=== PATIENT | male | born 1985 | race Caucasian/White ===

== ENCOUNTER 2019-03-21 14:49 | Inpatient (IN) | payer OTHER ==
[~2019-03-21] VITALS: Ht 170.2 cm; Wt 77.3 kg
[2019-03-21] MEDS ORDERED: LAMO100 PO (15:10)
[2019-03-21] MEDS ORDERED: ONDANSETRON HCL 4 MG/2 ML VIAL IVP PRN ×2 (15:45→16:15)
[2019-03-21] MEDS ORDERED: ACETAMINOPHEN 325 MG TABLET PO PRN (15:45)
[2019-03-21] MEDS ORDERED: 0.9% SODIUM CHLORIDE 10 ML SYRINGE IVP PRN ×2 (15:45→16:15)
[2019-03-21 16:01] LABS: BASOPHILS % (AUTO) 0.3 % (0.0-2.0); EOSINOPHILS % (AUTO) 0.7 % (1.0-6.0); HEMOGLOBIN 15.6 g/dL (13.5-17.5); LYMPHOCYTES # (AUTO) 1.3 K/uL (1.0-4.8); LYMPHOCYTES % (AUTO) 19.7 % (22.0-44.0); MEAN CORPUSCULAR HEMOGLOBIN 31.6 pg (26.0-34.0); MEAN CORPUSCULAR VOLUME 93 fL (80-100); MONOCYTES # (AUTO) 0.4 K/uL (0.1-1.0); MONOCYTES % (AUTO) 6.2 % (2.0-9.0); NEUTROPHILS # (AUTO) 4.8 K/uL (1.8-7.7); NEUTROPHILS % (AUTO) 73.1 % (40.0-70.0); PLATELET COUNT (AUTO) 272 K/uL (150-450); RED BLOOD CELL COUNT(AUTO) 4.94 MIL/uL (4.50-5.90); RED CELL DISTRIBUTION WIDTH 14.5 % (11.5-14.5)
[2019-03-21 16:10] LABS: ANION GAP 11 mmol/L (8-16); CALCIUM, TOTAL 8.7 mg/dL (8.8-10.5); CARBON DIOXIDE 27 mmol/L (22-29); CHLORIDE 106 mmol/L (98-107); CREATININE 0.75 mg/dL (0.60-1.30); GLOMERULAR FILTR. RATE CALC > 60 mL/min (>60); GLUCOSE,RANDOM 158 mg/dL (70-110); POTASSIUM 3.9 mmol/L (3.5-5.1); SODIUM SERUM 144 mmol/L (136-145); UREA NITROGEN, BLOOD 14 mg/dL (7-18)
[2019-03-21 16:15] LABS: ALANINE AMINOTRANSFERASE 28 U/L (12-78); ALBUMIN 3.9 g/dL (3.4-5.0); ALKALINE PHOSPHATASE 52 U/L (46-116); ASPARTATE AMINOTRANSFERASE 21 U/L (15-37); BILIRUBIN,TOTAL 0.5 mg/dL (0.1-1.0)
[2019-03-21] MEDS ORDERED: DOCUSATE SODIUM 100 MG CAPSULE PO PRN (16:15)
[2019-03-21] MEDS ORDERED: IPRATROPIUM BROMIDE 0.5 MG/2.5 ML NEB SOLUTION NEB PRN (16:15)
[2019-03-21] MEDS ORDERED: ALBUTEROL SULFATE 2.5 MG/0.5 ML NEB SOLUTION NEB PRN (16:15)
[2019-03-21] MEDS ORDERED: BISACODYL 10 MG RECTAL RECTAL SUPPOSITORY PR PRN (16:15)
[2019-03-21] MEDS ORDERED: MAGNESIUM HYDROXIDE SUSPENSION 30 ML UDCUP PO PRN (16:15)
[2019-03-21 16:25] VITALS: BP 122/74
[2019-03-21] MEDS ORDERED: INFLUENZA VIRUS VACCINE QVS 2019-20 (3YR+)/PF 60 MCG/0.5 ML SYRINGE IM ONE (17:45)
[2019-03-21] MEDS: MULTIVITAMINS, THERAPEUTIC TABLET PO SCH (17:48)
[2019-03-21] MEDS: PANTOPRAZOLE SODIUM 40 MG DR TABLET PO SCH (17:48)
[2019-03-21] MEDS: FOLIC ACID 1 MG TABLET PO SCH (17:48)
[2019-03-21] MEDS: THIAMINE HCL 100 MG TABLET PO SCH (17:48)
[2019-03-21] MEDS: SODIUM CHLORIDE 0.9% 1,000 ML IV SCH (17:49)
[2019-03-21 20:42] VITALS: BP 123/75
[2019-03-21] MEDS: ChlordiazePOXIDE HCL 25 MG CAPSULE PO PRN (22:35)
[2019-03-22] MEDS: SODIUM CHLORIDE 0.9% 1,000 ML IV SCH ×3 (03:05→20:15)
[2019-03-22 04:01] VITALS: BP 99/65
[2019-03-22 07:33] LABS: BASOPHILS % (AUTO) 0.3 % (0.0-2.0); EOSINOPHILS % (AUTO) 1.8 % (1.0-6.0); HEMATOCRIT 45.1 % (41-53); HEMOGLOBIN 15.3 g/dL (13.5-17.5); LYMPHOCYTES # (AUTO) 1.9 K/uL (1.0-4.8); LYMPHOCYTES % (AUTO) 40.2 % (22.0-44.0); MEAN CORPUSCULAR HEMOGLOBIN 31.4 pg (26.0-34.0); MEAN CORPUSCULAR HGB CONC 33.9 G/dL (31.0-37.0); MEAN CORPUSCULAR VOLUME 93 fL (80-100); MONOCYTES # (AUTO) 0.5 K/uL (0.1-1.0); MONOCYTES % (AUTO) 10.8 % (2.0-9.0); NEUTROPHILS # (AUTO) 2.2 K/uL (1.8-7.7); NEUTROPHILS % (AUTO) 46.9 % (40.0-70.0); PLATELET COUNT (AUTO) 238 K/uL (150-450); RED BLOOD CELL COUNT(AUTO) 4.87 MIL/uL (4.50-5.90); RED CELL DISTRIBUTION WIDTH 14.4 % (11.5-14.5)
[2019-03-22 07:44] LABS: ANION GAP 8 mmol/L (8-16); CALCIUM, TOTAL 8.3 mg/dL (8.8-10.5); CARBON DIOXIDE 25 mmol/L (22-29); CHLORIDE 110 mmol/L (98-107); CREATININE 0.65 mg/dL (0.60-1.30); GLOMERULAR FILTR. RATE CALC > 60 mL/min (>60); GLUCOSE,RANDOM 102 mg/dL (70-110); POTASSIUM 4.2 mmol/L (3.5-5.1); SODIUM SERUM 143 mmol/L (136-145); UREA NITROGEN, BLOOD 8 mg/dL (7-18)
[2019-03-22 08:49] VITALS: BP 106/68
[2019-03-22] MEDS: PANTOPRAZOLE SODIUM 40 MG DR TABLET PO SCH (08:57)
[2019-03-22] MEDS: THIAMINE HCL 100 MG TABLET PO SCH (08:57)
[2019-03-22] MEDS: MULTIVITAMINS, THERAPEUTIC TABLET PO SCH (08:57)
[2019-03-22] MEDS: FOLIC ACID 1 MG TABLET PO SCH (08:58)
[2019-03-22] MEDS: LORazepam 2 MG/ML VIAL IVP PRN ×3 (09:01→20:16)
[2019-03-22] MEDS: LamoTRIgine 100 MG TABLET PO SCH ×2 (09:30→20:16)
[2019-03-22 16:14] VITALS: BP 134/71
[2019-03-22 20:00] VITALS: BP 124/75
[2019-03-22] MEDS: ChlordiazePOXIDE HCL 25 MG CAPSULE PO PRN (20:16)
[2019-03-23 06:14] VITALS: BP 107/68
[2019-03-23] MEDS: SODIUM CHLORIDE 0.9% 1,000 ML IV SCH ×3 (06:48→19:55)
[2019-03-23 07:25] VITALS: BP 130/81
[2019-03-23] MEDS: ChlordiazePOXIDE HCL 25 MG CAPSULE PO PRN ×3 (08:28→22:12)
[2019-03-23] MEDS: LamoTRIgine 100 MG TABLET PO SCH ×2 (08:29→19:53)
[2019-03-23] MEDS: PANTOPRAZOLE SODIUM 40 MG DR TABLET PO SCH (08:29)
[2019-03-23] MEDS: MULTIVITAMINS, THERAPEUTIC TABLET PO SCH (08:29)
[2019-03-23] MEDS: THIAMINE HCL 100 MG TABLET PO SCH (08:30)
[2019-03-23] MEDS: FOLIC ACID 1 MG TABLET PO SCH (08:30)
[2019-03-23] MEDS: LORazepam 2 MG/ML VIAL IVP PRN ×4 (08:40→23:09)
[2019-03-23 16:25] VITALS: BP 108/64
[2019-03-23 20:05] VITALS: BP 129/74
[2019-03-24] MEDS ORDERED: LORazepam 2 MG/ML VIAL IVP PRN (00:30)
[2019-03-24] MEDS: SODIUM CHLORIDE 0.9% 1,000 ML IV SCH (06:42)
[2019-03-24 08:14] VITALS: BP 114/71
[2019-03-24] MEDS: LORazepam 2 MG/ML VIAL IVP PRN ×2 (08:20→12:23)
[2019-03-24] MEDS: LamoTRIgine 100 MG TABLET PO SCH ×2 (09:00→20:13)
[2019-03-24] MEDS: THIAMINE HCL 100 MG TABLET PO SCH (09:00)
[2019-03-24] MEDS: FOLIC ACID 1 MG TABLET PO SCH (09:00)
[2019-03-24] MEDS: PANTOPRAZOLE SODIUM 40 MG DR TABLET PO SCH (09:00)
[2019-03-24] MEDS: MULTIVITAMINS, THERAPEUTIC TABLET PO SCH (09:00)
[2019-03-24 11:33] VITALS: BP 132/67
[2019-03-24] MEDS: ChlordiazePOXIDE HCL 25 MG CAPSULE PO PRN (11:36)
[2019-03-24] MEDS ORDERED: MAGNESIUM OXIDE 400 MG TABLET PO ONE (15:30)
[2019-03-24 17:05] VITALS: BP 141/79
[2019-03-24] MEDS: MIRTAZAPINE 15 MG TABLET PO SCH (20:13)
[2019-03-24] MEDS: LORazepam 1 MG TABLET PO PRN (20:13)
[2019-03-24 20:24] VITALS: BP 128/49
[2019-03-25] MEDS: SODIUM CHLORIDE 0.9% 1,000 ML IV SCH ×3 (00:15→19:16)
[2019-03-25] MEDS ORDERED: LORazepam 2 MG/ML VIAL IM PRN (04:00)
[2019-03-25] MEDS: MULTIVITAMINS, THERAPEUTIC TABLET PO SCH (10:30)
[2019-03-25] MEDS: PANTOPRAZOLE SODIUM 40 MG DR TABLET PO SCH (10:30)
[2019-03-25] MEDS: FOLIC ACID 1 MG TABLET PO SCH (10:31)
[2019-03-25] MEDS: LamoTRIgine 100 MG TABLET PO SCH ×3 (10:31→19:42)
[2019-03-25] MEDS: THIAMINE HCL 100 MG TABLET PO SCH (10:31)
[2019-03-25] MEDS: LORazepam 1 MG TABLET PO PRN (10:31)
[2019-03-25 17:34] VITALS: BP 104/64
[2019-03-25] MEDS ORDERED: NICOTINE 21 MG/24 HOUR PATCH TD ONE (18:00)
[2019-03-25] MEDS: MIRTAZAPINE 15 MG TABLET PO SCH (19:35)
[2019-03-26] MEDS ORDERED: LORazepam 1 MG TABLET ONE (00:42)
[2019-03-26] MEDS ORDERED: LORazepam 1 MG TABLET PO PRN (03:15)
[2019-03-26 04:00] VITALS: BP 94/67
[2019-03-26] MEDS: SODIUM CHLORIDE 0.9% 1,000 ML IV SCH ×2 (06:15→20:00)
[2019-03-26 08:04] VITALS: BP 128/82
[2019-03-26] MEDS: MULTIVITAMINS, THERAPEUTIC TABLET PO SCH (08:11)
[2019-03-26] MEDS: FOLIC ACID 1 MG TABLET PO SCH (08:11)
[2019-03-26] MEDS: ACETAMINOPHEN 325 MG TABLET PO PRN (08:11)
[2019-03-26] MEDS: THIAMINE HCL 100 MG TABLET PO SCH (08:11)
[2019-03-26] MEDS: LamoTRIgine 100 MG TABLET PO SCH ×2 (08:12→20:13)
[2019-03-26] MEDS: PANTOPRAZOLE SODIUM 40 MG DR TABLET PO SCH (08:13)
[2019-03-26 17:05] VITALS: BP 106/80
[2019-03-26] MEDS: VENLAFAXINE HCL 75 MG ER CAPSULE PO SCH (17:27)
[2019-03-26 19:30] VITALS: BP 120/72
[2019-03-26] MEDS: NICOTINE 21 MG/24 HOUR PATCH TD SCH (21:20)
[2019-03-27] MEDS: SODIUM CHLORIDE 0.9% 1,000 ML IV SCH ×3 (02:15→22:15)
[2019-03-27 04:38] VITALS: BP 113/72
[2019-03-27 08:05] VITALS: BP 137/92
[2019-03-27] MEDS: THIAMINE HCL 100 MG TABLET PO SCH (08:32)
[2019-03-27] MEDS: VENLAFAXINE HCL 75 MG ER CAPSULE PO SCH (08:32)
[2019-03-27] MEDS: LamoTRIgine 100 MG TABLET PO SCH ×2 (08:33→20:04)
[2019-03-27] MEDS: PANTOPRAZOLE SODIUM 40 MG DR TABLET PO SCH (08:33)
[2019-03-27] MEDS: MULTIVITAMINS, THERAPEUTIC TABLET PO SCH (08:33)
[2019-03-27] MEDS: FOLIC ACID 1 MG TABLET PO SCH (08:33)
[2019-03-27] MEDS: NICOTINE 21 MG/24 HOUR PATCH TD SCH (08:34)
[2019-03-27 15:31] VITALS: BP 125/66
[2019-03-27] MEDS: ACETAMINOPHEN 325 MG TABLET PO PRN (15:52)
[2019-03-27 19:30] VITALS: BP 127/68
[2019-03-28 04:00] VITALS: BP 117/55
[2019-03-28 07:39] VITALS: BP 120/78
[2019-03-28] MEDS: NICOTINE 21 MG/24 HOUR PATCH TD SCH (08:14)
[2019-03-28] MEDS: VENLAFAXINE HCL 75 MG ER CAPSULE PO SCH (08:14)
[2019-03-28] MEDS: LamoTRIgine 100 MG TABLET PO SCH (08:14)
[2019-03-28] MEDS: THIAMINE HCL 100 MG TABLET PO SCH (08:15)
[2019-03-28] MEDS: MULTIVITAMINS, THERAPEUTIC TABLET PO SCH (08:15)
[2019-03-28] MEDS: SODIUM CHLORIDE 0.9% 1,000 ML IV SCH (08:15)
[2019-03-28] MEDS: PANTOPRAZOLE SODIUM 40 MG DR TABLET PO SCH (08:15)
[2019-03-28] MEDS: ACETAMINOPHEN 325 MG TABLET PO PRN (08:15)
[2019-03-28] MEDS: FOLIC ACID 1 MG TABLET PO SCH (08:15)
[2019-03-28] MEDS ORDERED: IBUP-2071 PO ×2 (11:23→11:24)
[2019-03-28] MEDS ORDERED: VENL-193 PO (11:29)
[2019-03-28] MEDS ORDERED: LAMO100 PO (11:32)
== END 2019-03-28 12:28 | DRG 897 ==
LOC: EMS 14:53 → 6S 15:51
PROVIDERS: ADMIT Internal Medicine; ATTEND Internal Medicine
DX: F10.239 Alcohol dependence with withdrawal, unspecified (principal); F31.4 Bipolar disorder, current episode depressed, severe, without psychotic features; G40.909 Epilepsy, unspecified, not intractable, without status epilepticus; F12.90 Cannabis use, unspecified, uncomplicated; F41.1 Generalized anxiety disorder; Z79.899 Other long term (current) drug therapy; Z87.891 Personal history of nicotine dependence; F10.20 Alcohol dependence, uncomplicated; Z28.21 Immunization not carried out because of patient refusal
CPT/HCPCS: 83735; G0480; J2060; J7030

== ENCOUNTER 2022-03-27 11:38 | Emergency (ER) | payer OTHER ==
[~2022-03-27] VITALS: Ht 165.1 cm; Wt 61.4 kg
[~2022-03-27 11:38] MED LIST: IBUP-1493 PO; LAMO100 PO; VENL-193 PO
[2022-03-27] MEDS ORDERED: BUSP5TAB20 PO (12:02)
[2022-03-27] MEDS ORDERED: HYDROmorphone HCL 2 MG/ML SYRINGE IM ONE ×2 (12:45→21:15)
[2022-03-27] MEDS ORDERED: LIDOCAINE 1% 10 ML VIAL SQ ONE (15:30)
[2022-03-27] MEDS ORDERED: KETOROLAC TROMETHAMINE 60 MG/2 ML VIAL IM ONE (16:15)
[2022-03-27 18:18] LABS: COVID AG,FIA SOURCE NASAL SWAB
[2022-03-27] MEDS ORDERED: ACETAMINOPHEN 325 MG TABLET PO ONE (19:00)
[2022-03-27] MEDS ORDERED: AMOXICILLIN TRIHYDRATE 250 MG CAPSULE PO ONE (20:00)
[2022-03-27 21:30] VITALS: BP 129/69
== END 2022-03-27 21:35 | disposition still patient (30) ==
LOC: EMS 11:43
DX: S02.31XA Fracture of orbital floor, right side, initial encounter for closed fracture (principal); S02.2XXA Fracture of nasal bones, initial encounter for closed fracture; S62.307A Unspecified fracture of fifth metacarpal bone, left hand, initial encounter for closed fracture; F31.9 Bipolar disorder, unspecified; Z91.040 Latex allergy status; Z20.822 Contact with and (suspected) exposure to COVID-19; X58.XXXA Exposure to other specified factors, initial encounter; Y93.89 Activity, other specified; Y92.89 Other specified places as the place of occurrence of the external cause; Y99.8 Other external cause status
CPT/HCPCS: 99284; 70450; 87426; 73130 ×2; 70486; 72125; 12011; 29125; 96372; J1170; J1885; J3490